=== PATIENT | female | born 1935 | race Caucasian/White ===

== ENCOUNTER → 2023-09-16 11:50 | Outpatient (REF) | payer MEDICARE, OTHER, SELFPAY ==
[2023-09-16 13:51] LABS: TSH 3.32 uIU/ml (0.47-4.68)
== END ==
LOC: REG 11:50
PROVIDERS: ATTENDING PHYSICIAN Internal Medicine Endocrinology, Diabetes & Metabolism; FAMILY PHYSICIAN Family Medicine
DX: E03.9 Hypothyroidism, unspecified (principal)
CPT/HCPCS: 36415; 84443

== ENCOUNTER → 2023-09-22 11:25 | Outpatient (REF) | payer MEDICARE, OTHER, SELFPAY ==
[2023-09-22 12:55] LABS: % Basophils 1.1 % (0-2); % Eosinophils 3.4 % (0-6); % Immature Granulocytes 0.4 % (0-0.5); % Lymphocytes 24.4 % (20.5-51.1); % Monocytes 7.6 % (1.7-9.3); % Neutrophils 63.1 % (42.2-75.2); Absolute Basophils 0.1 10^3/uL (0-0.2); Absolute Eosinophils 0.2 10^3/uL (0-0.7); Absolute Lymphocytes 1.4 10^3/uL (1.2-3.4); Absolute Monocytes 0.4 10^3/uL (0.1-0.6); Absolute Neutrophils 3.6 10^3/uL (1.4-6.5); Hematocrit 39.4 % (37.0-47.0); Hemoglobin 13.2 g/dL (12.0-16.0); Mean Corp Hgb Conc. 33.5 g/dL (33.0-37.0); Mean Corpuscular Volume 101.5 fL (81.0-99.0); Mean Platelet Volume 10.5 fL (7.4-10.4); Nucleated Red Blood Cells % 0 %; Platelet Count 186 10^3/uL (130-400); Red Blood Cell Count 3.88 10^6/uL (4.20-5.40); Red Cell Dist. Width 12.2 % (11.5-14.5); White Blood Cell Count 5.7 10^3/uL (4.8-10.8)
[2023-09-22 13:27] LABS: ALT (SGPT) 14 U/L (0-35); AST (SGOT) 26 U/L (14-36); Albumin 4.3 g/dl (3.5-5.0); Alkaline Phosphatase 67 U/L (38-126); Blood Urea Nitrogen 21 mg/dl (7-17); Calcium 9.7 mg/dl (8.4-10.2); Carbon Dioxide 30 mmol/L (22-30); Chloride 103 mmol/L (98-107); Glucose 89 mg/dl (70-99); Potassium 4.7 mmol/L (3.5-5.1); Sodium 137 mmol/L (135-145); Total Bilirubin 1.4 mg/dl (0.2-1.3); Total Protein 6.9 g/dl (6.3-8.2); eGFR 48.63
[2023-09-22 14:56] LABS: TSH Reflex To Free T4 8.25 uIU/ml (0.47-4.68)
[2023-09-22 15:26] LABS: Free T4 0.79 ng/dl (0.78-2.19)
== END ==
LOC: REG 11:25
PROVIDERS: ATTENDING PHYSICIAN Family Medicine
DX: C83.03 Small cell B-cell lymphoma, intra-abdominal lymph nodes (principal); D47.2 Monoclonal gammopathy; D75.89 Other specified diseases of blood and blood-forming organs; I10 Essential (primary) hypertension; E03.9 Hypothyroidism, unspecified
CPT/HCPCS: 36415; 80053; 84439; 84443; 85025

== ENCOUNTER → 2023-11-04 11:39 | Outpatient (REF) | payer MEDICARE, OTHER, SELFPAY ==
[2023-11-04 15:38] LABS: TSH 3.38 uIU/ml (0.47-4.68)
== END ==
LOC: REG 11:39
PROVIDERS: ATTENDING PHYSICIAN Internal Medicine Endocrinology, Diabetes & Metabolism; FAMILY PHYSICIAN Family Medicine
DX: E03.9 Hypothyroidism, unspecified (principal)
CPT/HCPCS: 36415; 84443

== ENCOUNTER 2023-11-14 20:31 | Inpatient (IN) | payer MEDICARE, OTHER, SELFPAY ==
[2023-11-14] VITALS (10 sets, daily range): BP systolic 101–144; BP diastolic 55–108; PULSE 84–90
--- NOTE | 2023-11-14 16:36 | ED.GENMED ---
History of Present Illness
General
Chief Complaint: Fall
Source: patient and family
Exam Limitations: dementia
Time Seen by Provider: 11/14/23 16:21
Travel History
Have you had any contact with someone who has COVID-19?: No
Do you have any symptoms of coronavirus? Fever > 100 degrees, chills, cough, shortness of breath, sore throat, loss of taste or smell, muscle aches, or headache?: No
History of Present Illness
History of Present Illness:
88-year-old female has mild dementia. However has lived independently. Checked on frequently by family. Her brother called her last evening she was in her normal state of health. Her daughter called today around noon she did not answer which is
unusual. The daughter then called the police who checked on her and apparently was on the floor by her bed. Unknown downtime. Patient has no specific complaints and does not recall what happened. She has no complaints denying chest pain
shortness of breath headache neck pain or other complaints.
Past History
Past History
ED Past Medical History: CAD (nstemi), COPD, Hypercholesterolemia and Other (Dementia)
ED Past Surgical History: Other (Tonsil/cataracts)
Social History
Tobacco: Former smoker
Alcohol: None
Drug: None
Living: with family
Review of Systems
Review of Systems
All Other Systems: Not applicable
Constitutional: Denies fever
Respiratory: Reports no symptoms
Cardiac: Reports no symptoms
Phy Exam
Physical Exam
Physical Exam:
TRAUMA EXAM:
VITAL SIGNS: Vital signs reviewed, cooperative
DISTRESS: No active disease
EYES: Pupils reactive, no orbital trauma
NOSE: No deformity or epistaxis
FACE AND SCALP: No scalp trauma, external canals no blood. Contusion left zygoma
NECK: Supple nontender
BACK: Back nontender, pelvis stable to compression
RESPIRATORY: No distress, breath sounds normal, ecchymosis and tenderness to the right anterior chest wall
CARDIAC: No murmur, pulses equal and strong
ABDOMEN: Soft nontender bowel sounds normal
SKIN: Skin intact no bleeding, color normal
EXTREMITIES: Nontender
NEUROLOGICAL: Alert, oriented x 2, no motor deficits
PSYCH: Mood affect normal
Course
Orders/Labs/Results
Orders:
Orders
11/14/23 16:29
CT Cervical Spine W/o Iv Contr Urgent
Comment:
Reason For Exam: fall. facial injury
CT Head W/o Iv Contrast Urgent
Comment:
Reason For Exam: fall. facial injury
Cardiac Monitoring- Treatment ONCE
11/14/23 16:30
CR Chest - 2 Views Urgent
Comment:
Reason For Exam: cw trauma. right anterior
11/14/23 16:31
EKG [Electrocardiogram (*1)] Urgent
Reason for Study: Syncope
EKG- Treatment ONCE
11/14/23 16:37
Basic Metabolic Panel Urgent
CPK [Creatine Phosphokinase] Urgent
Complete Blood Count/With Diff Urgent
Urinalysis Reflex To Culture Urgent
Date Specimen was Collected: 11/14/23
Time Specimen was Collected: 16:36
Urine Microscopic Reflex Cult Urgent
Urine Culture Urgent
AMALIA Source: U
Specimen Description:
Date Specimen was Collected: 11/14/23
Time Specimen was Collected: 16:36
11/14/23 17:44
CefTRIAXone [Rocephin] 1,000 mg IV NOW STA
11/14/23 19:41
Admit/Transfer Patient As Directed
Co-Sign Provider:
Level of Care: Inpatient admission
Assign to:: Telemetry
Physician / Group: Johann
Diagnosis: Found Down, Rhabdo
Reason for Telemetry: Syncope
Date to Stop Telemetry: 11/16/23
Time to Stop Telemetry: 11:00
Reason for Hospitalization: Found Down, Rhabdo
Expected length of stay greater than two midnights?: Yes
ELOS- Estimated Length of Stay in days: 2
I certify the patient meets the requirements for IP care: Yes
11/14/23 19:44
Code Status As Directed
Resuscitation Status: Do not resuscitate
Reached after discussion with pt or family/Healthcare POA: Yes
DNR Bracelet Application ONCE
11/16/23 11:00
DC Protocol for Telemetry ONCE
Abnormal Lab Results
11/14/23
16:37
WBC 11.0 H 10^3/uL
(4.8-10.8)
MCV 99.3 H fL
(81.0-99.0)
MCH 34.3 H pg
(27.0-31.0)
Abs Immat Gran (auto) 0.1 H 10^3/uL
(0-0.05)
Absolute Neuts (auto) 9.2 H 10^3/uL
(1.4-6.5)
Absolute Lymphs (auto) 1.0 L 10^3/uL
(1.2-3.4)
Absolute Monos (auto) 0.8 H 10^3/uL
(0.1-0.6)
Neutrophils % 83.3 H %
(42.2-75.2)
Lymphocytes % 8.6 L %
(20.5-51.1)
BUN 18 H mg/dl
(7-17)
Glucose 110 H mg/dl
(70-99)
Creatine Kinase 974 H U/L
(30-135)
Urine Ketones Trace A
(Negative)
Ur Occult Blood Reflex Trace A
(Negative)
Leukocyte Esterase Rfl 1+ A
(Negative)
Urine RBC 3-6 A /HPF
(0-2)
Urine WBC (Reflex) 16-20 A /HPF
(0-5)
Urine Bacteria (Reflex) Moderate A
(Negative)
11/14/23 16:37
11/14/23 16:37
Vital Signs
Initial and Last Documented VS:
Initial Vital Signs
Temp Pulse Resp BP Pulse Ox
98.4 F 75 16 120/108 97
11/14/23 16:23 11/14/23 16:23 11/14/23 16:23 11/14/23 16:23 11/14/23 16:23
Last Documented Vital Signs
Temp Pulse Resp BP Pulse Ox
98.4 F 80 16 106/58 96
11/14/23 16:23 11/14/23 18:00 11/14/23 18:00 11/14/23 18:00 11/14/23 18:00
MDM/Problems Addressed
Differential Diagnosis Includes:
Patient found on the ground by her bed. Unwitnessed. Unknown history. Fall versus syncope. Some minor apparent trauma that is being evaluated. Medically stable. ADL issues. Discussed with daughter.
*Radiology
Radiology exam reviewed: radiology read reviewed (No acute finding)
*Pulse Oximetry
Patient hypoxic: no
*EKG
Interpreted by ED Provider?: Yes
Interpretation: normal
Rate: normal
Rhythm: sinus
[place]: left axis deviation
Interval: normal interval
QRS Pattern: normal QRS
Ischemia: non-specific ST changes
*Desktop Support Associate Interpretation
Rate: normal
Interpretation: normal
Heart Rate: 74
Rhythm: sinus
*Critical Care Note
Total Time (30-74mins, 75-104mins- exclusive of procedures): Not Applicable
Data Reviewed
Review of Other/Old Records Reveals: Labs and Testing
Patient Management
Social determinants of health affecting care: Living situation
Update Note
Update Note:
Of note, patient's current close are her overnight close which would imply she was on the floor for a while
ED Attending Note
-
Portions of this chart may have been created with voice recognition software.� Occasional wrong word or��sound alike� substitutions may have occurred due to the inherent limitations of voice recognition software.
Discharge Plan
Departure
Patient Disposition: Admit
Date of Disposition: 11/14/23
Time of Disposition: 19:57
Presentation/result/management discussed w/ accepting MD/DO: Hospitalist
Discharge Problem:
UTI, Fall versus syncope, Multiple contusions
Prescriptions:
No Action
thyroid (pork) [[place] Thyroid] 60 MG tablet
60 mg PO DAILY
nitroglycerin 0.4 MG tablet, sublingual
0.4 mg sublingual [id number] PRN (Reason: chest pain) Qty: 25 3RF
verapamil 120 mg tablet extended release
120 mg PO BID
B Complex Tablet Extended Release
1 tab PO DAILY
donepezil 10 mg tablet
10 mg PO DAILY@1600
lisinopril 20 mg tablet
20 mg PO DAILY
alendronate 70 mg tablet
70 mg PO MO
isosorbide mononitrate 120 mg tablet extended release 24 hr
120 mg PO DAILY
folic acid 800 mcg Tablet
0.8 mg PO DAILY
memantine 10 mg tablet
10 mg PO BID
coenzyme Q10 [Co Q-10] 200 mg Capsule
200 mg PO DAILY
cholecalciferol (vitamin D3) 250 mcg (10,000 unit) Tablet
250 mcg PO DAILY
cyanocobalamin (vitamin B-12) 2,500 mcg Tablet
2,500 mcg PO DAILY
biotin 1,000 mcg Tablet,Chewable
1,000 mcg PO DAILY
aspirin 81 MG tablet,delayed release (DR/EC)
81 mg PO HS
Referrals:
Carie Ruiz MD [Family Provider] -
Interventions
Interventions:
*Risk Screen - Suicide Last Done: 11/14/23 16:27
*General Assessment Last Done: 11/14/23 16:27
*Neglect/Abuse Screening Last Done: 11/14/23 16:27
*ED COVID-19 Vaccine History Last Done: 11/14/23 16:27
ED-Musculoskeletal Assessment Last Done: 11/14/23 16:27
ED- Neurological Assessment Last Done: 11/14/23 16:27
ED-Skin Assessment Last Done: 11/14/23 16:27
Discharge Date and Time
Print Language: SPANISH
[2023-11-14 16:43] LABS: % Basophils 0.4 % (0-2); % Eosinophils 0.3 % (0-6); % Immature Granulocytes 0.5 % (0-0.5); % Lymphocytes 8.6 % (20.5-51.1); % Monocytes 6.9 % (1.7-9.3); % Neutrophils 83.3 % (42.2-75.2); Absolute Immature Granulocytes 0.1 10^3/uL (0-0.05); Absolute Monocytes 0.8 10^3/uL (0.1-0.6); Absolute Neutrophils 9.2 10^3/uL (1.4-6.5); Hematocrit 43.1 % (37.0-47.0); Hemoglobin 14.9 g/dL (12.0-16.0); Mean Corp Hgb Conc. 34.6 g/dL (33.0-37.0); Mean Corpuscular Hgb 34.3 pg (27.0-31.0); Mean Corpuscular Volume 99.3 fL (81.0-99.0); Mean Platelet Volume 10.4 fL (7.4-10.4); Nucleated Red Blood Cells % 0 %; Platelet Count 197 10^3/uL (130-400); Red Blood Cell Count 4.34 10^6/uL (4.20-5.40); Red Cell Dist. Width 11.9 % (11.5-14.5)
[2023-11-14 16:51] LABS: Urine Albumin Negative (Neg - Trace); Urine Bilirubin Negative (Negative); Urine Character Clear (Clear); Urine Color Yellow; Urine Glucose Negative (Negative); Urine Ketone Trace (Negative); Urine Leukocyte 1+ (Negative); Urine Nitrite Negative (Negative); Urine Occult Blood Trace (Negative); Urine Specific Gravity 1.015 (<1.030); Urine Urobilinogen Negative (Neg - 1+)
[2023-11-14 16:55] LABS: Blood Urea Nitrogen 18 mg/dl (7-17); Calcium 10.1 mg/dl (8.4-10.2); Carbon Dioxide 29 mmol/L (22-30); Chloride 104 mmol/L (98-107); Creatine Phosphokinase 974 U/L (30-135); Glucose 110 mg/dl (70-99); Potassium 4.4 mmol/L (3.5-5.1); Sodium 140 mmol/L (135-145); eGFR > 60.00
[2023-11-14 16:57] LABS: Urine Bacteria Moderate (Negative); Urine White Cell 16-20 /HPF (0-5)
[2023-11-14] MEDS: ROCEPHIN 1000 MG IV (18:04)
--- NOTE | 2023-11-14 19:46 | HPS.HSE ---
Family Physician
-
Family Physician: Carie Ruiz MD
Chief Complaint
-
Found Down
History of Present Illness
Patient is an 88y F with PMH significant for ASCVD, hypothyroidism and dementia who presents to ED after being found down at home. Patient is unable to contribute much to this history given her baseline dementia. She lives alone with local
family who check on her often. Patient spoke with her brother via phone last PM around 7:30. She seemed well at that time. This was the last that she was seen or heard from well. Daughter called her today at noon and she did not answer. After
several more attempts, daughter called police to do welfare check. They found the patient lying on the floor of her bedroom around 3 PM this afternoon. She was wearing her pajamas. She was awake when found. Patient was brought to the ED for
further evaluation / treatment.
Patient is unable to recall or relay any events that may have led to her being on the floor.
In the ED, patient states that she feels fairly well. She complains of neck discomfort - which her daughter notes is a chronic issue.
Medical History
Past Medical History
Past Medical History: Reports Other
Additional Past Medical History:
ASCVD (NSTEMI suspected due to coronary spasm - normal cath)
SVT
Hypertension
Alzheimer's Dementia
Osteoporosis
DDD
Past Surgical History: Reports Other
Additional Past Surgical History:
T&A
Cataracts
Social History
Tobacco: Former Smoker (Quit smoking in 1970s. Approx 20 pack years total use.)
Alcohol: None
Drug: None
Living: Alone
Family History
Family History: Not pertinent
Allergies / Home Medications
Allergies reflects when Allergies were last updated in [facility].
Home Medications with original date entered in [facility]
Allergy/Medication List:
Allergies
Allergy/AdvReac Type Severity Reaction Status Date / Time
clams Allergy Nausea / Verified 06/18/15 16:16
Vomiting
codeine Allergy Unknown Verified 06/18/15 16:16
Home Medications
thyroid (pork) 60 mg tablet ([place] Thyroid) 60 mg PO DAILY 06/18/15
nitroglycerin 0.4 mg sublingual tablet 0.4 mg sublingual [id number] PRN chest pain #25 tabs 06/20/15
alendronate 70 mg tablet 70 mg PO MO 11/14/23
aspirin 81 mg tablet,delayed release 81 mg PO HS 11/14/23
biotin 1,000 mcg chewable tablet 1,000 mcg PO DAILY 11/14/23
cholecalciferol (vitamin D3) 250 mcg (10,000 unit) tablet 250 mcg PO DAILY 11/14/23
coenzyme Q10 200 mg capsule (Co Q-10) 200 mg PO DAILY 11/14/23
cyanocobalamin (vitamin B-12) 2,500 mcg tablet 2,500 mcg PO DAILY 11/14/23
donepezil 10 mg tablet 10 mg PO DAILY@1600 11/14/23
folic acid 800 mcg tablet 0.8 mg PO DAILY 11/14/23
isosorbide mononitrate 120 mg tablet,extended release 24 hr 120 mg PO DAILY 11/14/23
lisinopril 20 mg tablet 20 mg PO DAILY 11/14/23
memantine 10 mg tablet 10 mg PO BID 11/14/23
verapamil 120 mg tablet,extended release 120 mg PO BID 11/14/23
vitamin B complex 1 tab PO DAILY 11/14/23
Review of Systems
-
History Source: Patient and Family
A 12 point ROS was completed and negative except as noted: Yes
Constitutional: Denies Fever, Fatigue or Chills
EENT: Denies Sore Throat
Respiratory: Denies Cough or Trouble Breathing
Cardiac: Denies Chest Pain or Palpitations
Abdomen/GI: Denies Abdominal Pain, Nausea, Vomiting, Diarrhea or Constipated
: Denies Dysuria, Frequency, Flank Pain, Incontinence or Bleeding
Musculoskeletal: Reports Other (Neck pain)
Neurological: Denies Dizzy, Headache, Weakness or Numbness
Psych: Reports Dementia; Denies Depression or Anxiety
Physical Exam
Vital Signs
Vital Signs
Temp Pulse Resp BP Pulse Ox
98.4 F 80 16 106/58 96
11/14/23 16:23 11/14/23 18:00 11/14/23 18:00 11/14/23 18:00 11/14/23 18:00
Physical Exam
General: Other (Pleasant 88y F in no acute distress.)
HEENT: Moist mucous membranes, PERRLA and Other (Bruising adjacent to the L eye.)
Respiratory: Clear; No Wheezes, Rales or Rhonchi
Cardiac: S1/S2, Regular Rhythm and Murmur (II/ AREN)
GI: Soft, Non Tender, Non Distended and Normal Bowel Sounds
Musculoskeletal: No Clubbing, No Cyanosis and No Edema
Skin: Other (Small abrasion over the R elbow.)
Neuro: Awake, Alert and Nonfocal/grossly intact; No Oriented
Laboratory Results
-
11/14/23 16:37
11/14/23 16:37
Impression/Plan
-
A/P: Patient is an 88y F with PMH significant for ASCVD, hypertension and dementia who presents to ED for evaluation after being found down.
Found Down
Rhabdomyolysis
- Admit for further evaluation and treatment.
- Unclear mechanism that led patient to floor - would assume fall overnight at some point.
- CT head shows advanced atrophy but otherwise unremarkable.
- CT C-Spine shows chronic DDD but no acute fracture / other findings.
- CPK = 974 c/w muscle breakdown from prolonged time down.
- UA without significant myoglobinuria to suggest pigment nephropathy. Renal function normal.
- IVFs overnight and follow renal function, CPK, etc.
- PT / OT evaluations for gait assessment.
- Monitor on tele overnight to rule out arrhythmia / syncope as etiology of fall.
- Follow neuro status and consider repeat PRESCHOOL ASSOCIATE TEACHER imaging if any new changes.
Questionable UTI
- UA with mild increase in WBC, negative nitrites.
- Patient does not report any urinary symptoms.
- Continue ceftriaxone for now and follow-up culture data.
ASCVD
- History of NSTEMI presumed secondary to vasospasm given normal cath.
- Continue daily ASA.
- Monitor for any chest pain, palpitations, etc.
Benign Hypertension
- BP on the lower side at present.
- Hold multidrug antihypertensive regimen for now.
- Resume meds incrementally as needed for BP control.
Hypothyroidism
- Stable. Most recent TFTs (11/03) were normal.
- Continue current hormone replacement.
Alzheimer's Dementia
- CT shows advanced atrophy and patient unable to contribute to history due to baseline dementia.
- No prior issues with gait stability / falls / etc.
- Continue Aricept / Namenda.
- Follow PT recommendations.
- Return to home alone may not be best option.
DVT Prophylaxis: SCDs
Code Status: DNR
[2023-11-14 23:14] LABS: Troponin I 0.017 ng/ml
[2023-11-14] MEDS: ASPIR LOW (ENTERIC COATED) 81 MG PO (23:32)
[2023-11-14] MEDS: NSS 1000 IV (23:32)
[2023-11-14] MEDS: NAMENDA 10 MG PO (23:59)
[2023-11-15] VITALS (12 sets, daily range): BP systolic 103–145; BP diastolic 43–93; PULSE 73–79
[2023-11-15 05:55] LABS: Hematocrit 40.3 % (37.0-47.0); Hemoglobin 13.6 g/dL (12.0-16.0); Mean Corp Hgb Conc. 33.7 g/dL (33.0-37.0); Mean Corpuscular Hgb 34.1 pg (27.0-31.0); Mean Platelet Volume 10.4 fL (7.4-10.4); Platelet Count 164 10^3/uL (130-400); Red Blood Cell Count 3.99 10^6/uL (4.20-5.40); White Blood Cell Count 8.6 10^3/uL (4.8-10.8)
[2023-11-15 06:20] LABS: Troponin I < 0.012 ng/ml
[2023-11-15 06:23] LABS: Blood Urea Nitrogen 22 mg/dl (7-17); Calcium 9.1 mg/dl (8.4-10.2); Carbon Dioxide 26 mmol/L (22-30); Chloride 106 mmol/L (98-107); Creatine Phosphokinase 427 U/L (30-135); Glucose 84 mg/dl (70-99); Magnesium 2.1 mg/dl (1.6-2.3); Potassium 3.8 mmol/L (3.5-5.1); Sodium 140 mmol/L (135-145); eGFR > 60.00
[2023-11-15] MEDS: FOLVITE 0.800000000000000044 MG PO (08:20)
[2023-11-15] MEDS: NAMENDA 10 MG PO ×2 (08:20→20:22)
[2023-11-15] MEDS: ARMOUR THYROID 60 MG PO (08:20)
[2023-11-15] MEDS: NSS 1000 IV ×2 (08:21→20:25)
[2023-11-15] MEDS: TYLENOL 650 MG PO ×2 (09:27→15:01)
[2023-11-15 11:50] LABS: Troponin I < 0.012 ng/ml
--- NOTE | 2023-11-15 12:44 | W.PN.HOSP.TC ---
Today's Communication/Plan
-
IVF
Restart Verapamil
Orthostatic vitals
Hold Lisinopril
Discharge planning
Assessment / Plan
Assessment / Plan
88-year-old female was found down at home and brought into the ER for evaluation she spoke to her brother 7:30 PM at night and she was found at 3 PM the next day wearing pajamas. Daughter thinks that she may have tripped on furniture the way the
room looks.
Pleasently demented.
Cannot give history
Daughter at bed side
Moving all extremities without any pain
Cardiovascular system S1-S2 appreciated
Chest clear to auscultation
Abdomen soft and nontender
Nonfocal neuroexam
# Fall with rhabdomyolysis
Unclear reason for fall
CT head with advanced atrial free
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
Continue IV fluids to treat rhabdomyolysis and follow CPK level
Monitor on telemetry and follow neurostatus
# Questionable UTI
Continue ceftriaxone until cultures are back
# Coronary artery disease-history of [id number] to vasospasm with normal cath
Continue aspirin, Imdur
Troponins are negative
# Mild to moderate mitral regurgitation
# Hypertension-
Normally on lisinopril 20 p.o. daily, verapamil 120 mg twice daily
Hold Lisinopril
Continue Verapamil with H/O SVT
# Hypothyroidism-continue [place] Thyroid 60 mg p.o. daily
History of autoimmune thyroiditis
# Dementia-continue memantine 10 twice daily, donepezil 10 mg p.o. daily
PT OT
# History of SVT-continue verapamil
# Gilbert syndrome
# Diverticulosis
# Osteopenia/osteoporosis-on Fosamax
# Ex-smoker
# DVT prophylaxis-SCDs
# CODE STATUS-DNR conformed with daughter at bed side
Daughter says they are not ready for assisted living.
She is planning to get an aide and daughter also a med alert for mom
Possible discharge tomorrow discussed
Case management consulted
Anticipated Discharge: Within 24 hours
Subjective/Interval History
-
Date of Service: November 15, 2023
Objective Data
-
Labs:
Laboratory Results
11/15/23
05:37
WBC 8.6
Hgb 13.6
Hct 40.3
Plt Count 164
Sodium 140
Potassium 3.8
Chloride 106
Carbon Dioxide 26
BUN 22 H
Creatinine 0.9
Glucose 84
Calcium 9.1
Vital Signs:
Vital Signs
Temp Pulse Resp BP Pulse Ox
98.0 F 65 18 103/43 98
11/15/23 11:47 11/15/23 11:47 11/15/23 11:47 11/15/23 11:47 11/15/23 11:47
[2023-11-15] MEDS: STERILE WATER FOR INJECTION 10 ML IV (17:21)
[2023-11-15] MEDS: ROCEPHIN 1000 MG IV (17:21)
[2023-11-15] MEDS: ARICEPT 10 MG PO (17:21)
[2023-11-15] MEDS: CALAN EXTENDED RELEASE 120 MG PO (20:22)
[2023-11-15] MEDS: ASPIR LOW (ENTERIC COATED) 81 MG PO (21:26)
[2023-11-16] VITALS (17 sets, daily range): BP systolic 112–141; BP diastolic 48–96; PULSE 76
[2023-11-16] MEDS: ARMOUR THYROID 60 MG PO (05:36)
[2023-11-16 06:31] LABS: Creatine Phosphokinase 237 U/L (30-135)
[2023-11-16] MEDS: IMDUR (EXTENDED RELEASE) 30 MG PO (08:01)
[2023-11-16] MEDS: CALAN EXTENDED RELEASE 120 MG PO ×2 (08:01→22:40)
[2023-11-16] MEDS: VITAMIN D3 (cholecalciferol) 250 MCG PO (08:02)
[2023-11-16] MEDS: FOLVITE 0.800000000000000044 MG PO (08:02)
[2023-11-16] MEDS: NAMENDA 10 MG PO ×2 (08:02→22:40)
[2023-11-16] MEDS: VITAMIN B-12 2500 MCG PO (08:03)
--- NOTE | 2023-11-16 08:29 | W.PN.HOSP.TC ---
Today's Communication/Plan
-
Stop IVF
OOB to chair
PT OT re eval
Discharge planning
Assessment / Plan
Assessment / Plan
88-year-old female was found down at home and brought into the ER for evaluation she spoke to her brother 7:30 PM at night and she was found at 3 PM the next day wearing pajamas. Daughter thinks that she may have tripped on furniture the way the
room looks.
Pleasantly demented.
Cardiovascular system S1-S2 appreciated, SM apex
Chest clear to auscultation
Abdomen soft and nontender
Nonfocal neuroexam
# Fall with rhabdomyolysis
Unclear reason for fall
CT head with advanced atrial free
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
CPKs much better. Stop IV fluids
# Questionable UTI
Continue ceftriaxone until cultures are back
# Coronary artery disease-history of [id number] to vasospasm with normal cath
Continue aspirin, Imdur
Troponins are negative
# Mild to moderate mitral regurgitation
# Hypertension-
Normally on lisinopril 20 p.o. daily, verapamil 120 mg twice daily
Hold Lisinopril
Continue Verapamil
# Hypothyroidism-continue [place] Thyroid 60 mg p.o. daily
History of autoimmune thyroiditis
# Dementia-continue memantine 10 twice daily, donepezil 10 mg p.o. daily
PT OT
# History of SVT-continue verapamil
# Gilbert syndrome
# Diverticulosis
# Osteopenia/osteoporosis-on Fosamax
# Ex-smoker
# DVT prophylaxis-SCDs
# CODE STATUS-DNR conformed with daughter at bed side
Daughter says they are not ready for assisted living.
She is planning to get an aide and daughter also a med alert for mom
Possible discharge today was discussed
Case management consulted
D/W RN
Pt ambulates to bathroom.
PT and OT to re evaluate pt.
Message sent to Case management
Anticipated Discharge: Today
Subjective/Interval History
-
Date of Service: November 16, 2023
Objective Data
-
Vital Signs:
Vital Signs
Temp Pulse Resp BP Pulse Ox
97.7 F 68 14 148/64 96
11/16/23 07:00 11/16/23 08:01 11/16/23 07:00 11/16/23 08:01 11/16/23 07:00
[2023-11-16] MEDS: NSS IV (08:33)
--- NOTE | 2023-11-16 09:48 | CM ---
Addendum entered by Scott New 11/16/23 13:02:
CM met with pt and pt's daughter. PT evaluations reviewed. Pt's daughter stated that pt is very weak to go home and she does not have any caregiver services in place. Pt's daughter is requested SNF level of care. A list of SNFs provided to pt and
her daughter. Following SNFs preferred: [facility], [facility], [facility], [facility].
A referral to above SNFs made. Awaiting for determination.
D/C plan: preferred SNF.
CM will follow to assist pt with discharge to a preferred SNF.
Original Note:
CM following re: discharge planning.
CM consulted to assist pt with discharge planning at ED.
Pt is an 88 year old female, admitted with primary dx of Fall with rhabdomyolysis.
Pt presents lying in a stretcher smiling, with decreased judgment, limited insight, short term memory deficit and very worship preoccupied. Pt reports she lives alone in a 2SH, 1 step to enter, has 3 children, daughter Coretta lives in [place] and
helps as needed over the phone. Pt described herself as independent in all areas [employer]. Pt stated she is very weak now.
CM spoke to pt's daughter Coretta and she stated she tries to get 24/7 caregiver services for her mother but she has been refusing and not happy to have anybody at her house. pt's daughter feels that her mother will be benefitted from a short term
rehab and daughter will come to today at 11:00 a.m to discuss a detailed discharge plan.
PT evaluations noted from yesterday and today: SNF level of care recommended and 24/7 caregiver services at home. CM will discuss it with daughter at 11:00 a.m.
PCP: collin Ruiz
D/C plan: most likely SNF level of care and it will be discussed with pt's daughter today
CM will follow with discharge plan updates as hospitalization progresses
--- NOTE | 2023-11-16 10:08 | PTCARENOTE ---
Assumed care of pt at 0645. AAOx2. Disoriented to time and situation. Pt with hx of dementia. Bed alarm in place. NSR on compliance monitor. VSS. Assessment documented. Case management at bedside with pt. See note. PT/OT also at bedside with pt this
morning. Recommending SNF or home with 24 hr assistance. Pt in bed, call infante in reach.
[2023-11-16] MEDS: ARICEPT 10 MG PO (16:18)
[2023-11-16] MEDS: STERILE WATER FOR INJECTION 10 ML IV (17:08)
[2023-11-16] MEDS: ROCEPHIN 1000 MG IV (17:08)
[2023-11-16] MEDS: ASPIR LOW (ENTERIC COATED) 81 MG PO (22:40)
[2023-11-17 04:04] VITALS: BP 122/65
[2023-11-17 07:48] VITALS: BP 140/61
[2023-11-17] MEDS: CALAN EXTENDED RELEASE 120 MG PO (07:50)
[2023-11-17] MEDS: ARMOUR THYROID 60 MG PO (07:50)
[2023-11-17] MEDS: FOLVITE 0.800000000000000044 MG PO (07:50)
[2023-11-17] MEDS: IMDUR (EXTENDED RELEASE) 30 MG PO ×2 (07:50→13:33)
[2023-11-17] MEDS: NAMENDA 10 MG PO (07:51)
[2023-11-17] MEDS: VITAMIN B-12 2500 MCG PO (07:51)
[2023-11-17] MEDS: VITAMIN D3 (cholecalciferol) 250 MCG PO (07:51)
--- NOTE | 2023-11-17 10:32 | PTCARENOTE ---
Assumed care of pt at 0645. AAOx2. Disoriented to time and situation. Hx of dementia. Bed alarm remains in place. Pt using call infante appropriately. NSR on china and silverware salesperson. VSS. Assessment documented. CM assisting with dispo.
--- NOTE | 2023-11-17 10:57 | W.PN.HOSP.TC ---
Today's Communication/Plan
-
Discharge
Assessment / Plan
Assessment / Plan
88-year-old female was found down at home and brought into the ER for evaluation she spoke to her brother 7:30 PM at night and she was found at 3 PM the next day wearing pajamas. Daughter thinks that she may have tripped on furniture the way the
room looks.
Pleasantly demented.
Cardiovascular system S1-S2 appreciated, SM apex
Chest clear to auscultation
Abdomen soft and nontender
Nonfocal neuroexam
# Fall with rhabdomyolysis
Unclear reason for fall
CT head with advanced atrial free
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
CPKs much better. Stopped IV fluids
# UTI ruled out
Stop AB
# Coronary artery disease-history of [id number] to vasospasm with normal cath
Continue aspirin, Imdur
Troponins are negative
# Mild to moderate mitral regurgitation
# Hypertension-
Normally on lisinopril 20 p.o. daily, verapamil 120 mg twice daily
Hold Lisinopril
Continue Verapamil
# Hypothyroidism-continue [place] Thyroid 60 mg p.o. daily
History of autoimmune thyroiditis
# Dementia-continue memantine 10 twice daily, donepezil 10 mg p.o. daily
PT OT
# History of SVT-continue verapamil
# Gilbert syndrome
# Diverticulosis
# Osteopenia/osteoporosis-on Fosamax
# Ex-smoker
# DVT prophylaxis-SCDs
# CODE STATUS-DNR conformed with daughter at bed side
D/W Case management
D/W RN
Spoke to daughter and updated.
Discharge to rehab
time spent 31 min
Anticipated Discharge: Today
Subjective/Interval History
-
Date of Service: November 17, 2023
Objective Data
-
Vital Signs:
Vital Signs
Temp Pulse Resp BP Pulse Ox
97.9 F 62 18 140/61 94
11/17/23 07:48 11/17/23 07:50 11/17/23 07:48 11/17/23 07:50 11/17/23 07:48
--- NOTE | 2023-11-17 11:01 | W.DS.TRANS ---
Addendum entered and electronically signed by Compa Cruz MD 11/17/23 15:30:
Dictation- [id number]
Original Note:
DC Summary - [employer]
-
Discharge Instructions:
Discharge Diagnosis/Procedures Fall, rhabdomyolysis, mitral regurgitation,
hypertension, hypothyroidism, dementia, history
of SVT, osteoporosis
Diet As tolerated
Activity As tolerated,With assistance
Driving Restrictions No driving
Blood Work CBC ,BMP 1 week
Other Services PT,OT
Instructions:
Stand-Alone Forms:
Changes to Home Medications: Yes
Discharge Medications:
DC Medications w/original date entered in [employer]
nitroglycerin 0.4 mg sublingual tablet 0.4 mg sublingual [id number] PRN chest pain #25 tabs 06/20/15
lisinopril 20 mg tablet 20 mg PO DAILY 11/14/23
alendronate 70 mg tablet 70 mg PO MO osteoporosis #0 tabs 11/16/23
aspirin 81 mg tablet,delayed release 81 mg PO HS Blood clot prevention/tx #0 tabs 11/16/23
biotin 1,000 mcg chewable tablet 1,000 mcg PO DAILY Supplement #0 tabs 11/16/23
cholecalciferol (vitamin D3) 250 mcg (10,000 unit) tablet 250 mcg PO DAILY Supplement #0 tabs 11/16/23
coenzyme Q10 200 mg capsule (Co Q-10) 200 mg PO DAILY Supplement #0 caps 11/16/23
cyanocobalamin (vitamin B-12) 2,500 mcg tablet 2,500 mcg PO DAILY Supplement #0 tabs 11/16/23
donepezil 10 mg tablet 10 mg PO DAILY@1600 dementia #0 tabs 11/16/23
folic acid 800 mcg tablet 0.8 mg PO DAILY Supplement #0 tabs 11/16/23
isosorbide mononitrate 60 mg tablet,extended release 24 hr 60 mg PO DAILY Heart disease/condition #30 tabs 11/16/23
memantine 10 mg tablet 10 mg PO BID dementia #0 tabs 11/16/23
thyroid (pork) 60 mg tablet ([place] Thyroid) 60 mg PO DAILY Thyroid #0 tabs 11/16/23
verapamil 120 mg tablet,extended release 120 mg PO BID svt #0 tabs 11/16/23
vitamin B complex 1 tab PO DAILY Supplement #0 tabs 11/16/23
Home Medication Changes
Imdur dose reduced
Lisinopril is on hold until blood pressure needs it
Pending Results: No
[2023-11-17 11:31] VITALS: BP 126/59
--- NOTE | 2023-11-17 12:34 | CM ---
CM following re: discharge planning.
Reviewed pt's chart, met with pt, discussed with MD and RN, met with pt's daughter Coretta.
According to MD pt is medically stable to be discharged today. Both pt and her daughter are aware, expressed their agreement with discharge. IMM reviewed, placed on chart, pt has a copy.
Both pt and her daughter are aware that [facility], [facility] and [facility] have no bed available. [facility] offered a bed and both pt and her daughter expressed their agreement with going to [facility]. Pt's daughter stated she will transport pt to [facility].
CM spoke to [facility] liaison and she confirmed that a bed at [facility] is available and pt is accepted for admission today.
[facility] nursing report: [phone]
Please fax discharge instructions to [phone]
D/C plan: [facility] for a short term rehab. Daughter to transport.
[2023-11-17 14:31] VITALS: BP 126/59
== END 2023-11-17 14:30 | DRG 558 ==
LOC: ED 20:31
PROVIDERS: ADMITTING PHYSICIAN Hospitalist; ATTENDING PHYSICIAN Hospitalist; EMERGENCY PHYSICIAN Emergency Medicine; FAMILY PHYSICIAN Family Medicine
DX: M62.82 Rhabdomyolysis (principal); G30.9 Alzheimer's disease, unspecified; E03.9 Hypothyroidism, unspecified; F02.A0 Dementia in other diseases classified elsewhere, mild, without behavioral disturbance, psychotic disturbance, mood disturbance, and anxiety; I10 Essential (primary) hypertension; I34.0 Nonrheumatic mitral (valve) insufficiency; J44.9 Chronic obstructive pulmonary disease, unspecified; Z66 Do not resuscitate; S00.83XA Contusion of other part of head, initial encounter; S50.312A Abrasion of left elbow, initial encounter; S20.211A Contusion of right front wall of thorax, initial encounter; W19.XXXA Unspecified fall, initial encounter; Y92.003 Bedroom of unspecified non-institutional (private) residence as the place of occurrence of the external cause; E80.4 Gilbert syndrome; E78.00 Pure hypercholesterolemia, unspecified; I25.10 Atherosclerotic heart disease of native coronary artery without angina pectoris; I25.2 Old myocardial infarction; K57.90 Diverticulosis of intestine, part unspecified, without perforation or abscess without bleeding; M81.0 Age-related osteoporosis without current pathological fracture; M50.30 Other cervical disc degeneration, unspecified cervical region; Z59.89 Other problems related to housing and economic circumstances; Z79.82 Long term (current) use of aspirin; Z79.890 Hormone replacement therapy; Z79.899 Other long term (current) drug therapy; Z87.891 Personal history of nicotine dependence; Z86.79 Personal history of other diseases of the circulatory system; Z88.5 Allergy status to narcotic agent
CPT/HCPCS: 70450; 71046; 72125; 80048; 81003; 81015; 82550; 83735; 84484; 85025; 85027; 87086; 93005; 96374; 96376; 97167; 97535; 99285

== ENCOUNTER → 2024-01-26 12:01 | Outpatient (REF) | payer MEDICARE, OTHER, SELFPAY ==
[2024-01-26 13:12] LABS: % Basophils 0.8 % (0-2); % Eosinophils 2.9 % (0-6); % Immature Granulocytes 0.3 % (0-0.5); % Monocytes 7.3 % (1.7-9.3); % Neutrophils 65.7 % (42.2-75.2); Absolute Basophils 0.1 10^3/uL (0-0.2); Absolute Eosinophils 0.2 10^3/uL (0-0.7); Absolute Lymphocytes 1.4 10^3/uL (1.2-3.4); Absolute Monocytes 0.5 10^3/uL (0.1-0.6); Absolute Neutrophils 4.1 10^3/uL (1.4-6.5); Hematocrit 41.4 % (37.0-47.0); Hemoglobin 14.1 g/dL (12.0-16.0); Mean Corp Hgb Conc. 34.1 g/dL (33.0-37.0); Mean Corpuscular Hgb 34.1 pg (27.0-31.0); Mean Platelet Volume 10.3 fL (7.4-10.4); Nucleated Red Blood Cells % 0 %; Platelet Count 236 10^3/uL (130-400); Red Blood Cell Count 4.14 10^6/uL (4.20-5.40); Red Cell Dist. Width 12.5 % (11.5-14.5); White Blood Cell Count 6.2 10^3/uL (4.8-10.8)
[2024-01-26 14:10] LABS: ALT (SGPT) 19 U/L (0-35); AST (SGOT) 29 U/L (14-36); Albumin 4.5 g/dl (3.5-5.0); Alkaline Phosphatase 87 U/L (38-126); Blood Urea Nitrogen 26 mg/dl (7-17); Calcium 10.2 mg/dl (8.4-10.2); Carbon Dioxide 30 mmol/L (22-30); Chloride 102 mmol/L (98-107); Glucose 88 mg/dl (70-99); Potassium 4.8 mmol/L (3.5-5.1); Sodium 139 mmol/L (135-145); Total Bilirubin 1.1 mg/dl (0.2-1.3); Total Protein 7.1 g/dl (6.3-8.2); eGFR 43.54
[2024-01-26 14:14] LABS: Microalbumin, Random Urine 3.4 mg/dl (0.6-1.7)
[2024-01-26 14:20] LABS: Free T4 0.88 ng/dl (0.78-2.19)
[2024-01-26 14:33] LABS: TSH 6.32 uIU/ml (0.47-4.68)
[2024-01-29 04:32] LABS: Total T3 (Sendout) 158 ng/dL (80-200)
== END ==
LOC: REG 12:01
PROVIDERS: ATTENDING PHYSICIAN Family Medicine
DX: F03.90 Unspecified dementia, unspecified severity, without behavioral disturbance, psychotic disturbance, mood disturbance, and anxiety (principal); I10 Essential (primary) hypertension; C83.03 Small cell B-cell lymphoma, intra-abdominal lymph nodes; D47.2 Monoclonal gammopathy; N18.31 Chronic kidney disease, stage 3a; E03.9 Hypothyroidism, unspecified
CPT/HCPCS: 36415; 80053; 82043; 84439; 84443; 84480; 85025

== ENCOUNTER → 2024-05-24 11:42 | Outpatient (REF) | payer MEDICARE, OTHER, SELFPAY ==
[2024-05-24 14:12] LABS: ALT (SGPT) 15 U/L (0-35); AST (SGOT) 26 U/L (14-36); Albumin 4.4 g/dl (3.5-5.0); Alkaline Phosphatase 74 U/L (38-126); Blood Urea Nitrogen 19 mg/dl (7-17); Calcium 9.6 mg/dl (8.4-10.2); Carbon Dioxide 30 mmol/L (22-30); Chloride 104 mmol/L (98-107); Glucose 84 mg/dl (70-99); Potassium 4.5 mmol/L (3.5-5.1); Sodium 142 mmol/L (135-145); Total Bilirubin 1.2 mg/dl (0.2-1.3); Total Protein 7.2 g/dl (6.3-8.2); eGFR 54.19
[2024-05-24 15:13] LABS: Free T4 0.86 ng/dl (0.78-2.19)
== END ==
LOC: REG 11:42
PROVIDERS: ATTENDING PHYSICIAN Family Medicine
DX: N18.31 Chronic kidney disease, stage 3a (principal); E03.9 Hypothyroidism, unspecified
CPT/HCPCS: 36415; 80053; 84439; 84443

== ENCOUNTER → 2024-06-15 11:30 | Outpatient (REF) | payer MEDICARE, OTHER, SELFPAY ==
[2024-06-15 13:56] LABS: ALT (SGPT) 14 U/L (0-35); AST (SGOT) 27 U/L (14-36); Albumin 4.5 g/dl (3.5-5.0); Alkaline Phosphatase 82 U/L (38-126); Calcium 9.7 mg/dl (8.4-10.2); Carbon Dioxide 31 mmol/L (22-30); Chloride 99 mmol/L (98-107); Glucose 80 mg/dl (70-99); Potassium 4.9 mmol/L (3.5-5.1); Sodium 138 mmol/L (135-145); Total Bilirubin 1.3 mg/dl (0.2-1.3); Total Protein 7.2 g/dl (6.3-8.2); eGFR 54.19
[2024-06-15 14:09] LABS: Vitamin D, 25-OH*** 44.5 ng/mL (30-80)
[2024-06-15 14:35] LABS: Blood Urea Nitrogen 16 mg/dl (7-17)
== END ==
LOC: REG 11:30
PROVIDERS: ATTENDING PHYSICIAN Internal Medicine Endocrinology, Diabetes & Metabolism; FAMILY PHYSICIAN Family Medicine
DX: E55.9 Vitamin D deficiency, unspecified (principal); G30.9 Alzheimer's disease, unspecified
CPT/HCPCS: 36415; 80053; 82306; 84443

== ENCOUNTER 2024-08-28 11:27 | Emergency (ER) | payer MEDICARE, OTHER, SELFPAY ==
[2024-08-28 11:29] VITALS: BP 156/83
[2024-08-28 13:01] VITALS: BP 167/75; BMI 26.7
--- NOTE | 2024-08-28 13:38 | ED.GENMED ---
History of Present Illness
General
Chief Complaint: Fall
Source: patient
Exam Limitations: none
Time Seen by Provider: 08/28/24 13:22
Nursing documentation reviewed up to this point in time: agreed with
History of Present Illness
History of Present Illness:
Patient is a 88-year-old female who lives [place] and has an aide presents to the ER for evaluation of fall. Patient was standing while trying to get her shoes on and slid down to the floor hitting her low back against the wood frame of her bed. She
denies hitting her head her only complaint is low back pain. She has not take anything for pain. She denies any headache or neck pain. She denies extremity pain. She is on blood thinners.
Past History
Past History
ED Past Medical History: CAD (nstemi), COPD, Hypercholesterolemia and Other (Dementia)
ED Past Surgical History: Other (Tonsil/cataracts)
Social History
Tobacco: Former smoker
Alcohol: None
Drug: None
Living: with family
Review of Systems
Review of Systems
Allergies reviewed?: Yes
Other source history: family
All Other Systems: ROS reviewed and negative except as documented in HPI and ROS
Constitutional: Reports no symptoms; Denies fever, fatigue or chills
Respiratory: Reports no symptoms
Cardiac: Reports no symptoms
ABD/GI: Reports no symptoms
Musculoskeletal: Reports back pain
Skin: Reports no symptoms
Neurological: Reports no symptoms
Psychiatric: Reports no symptoms
Phy Exam
General Physical Exam
General Presentation: no apparent distress
General age: appears stated age
General Skin: warm and dry
General Habitus: normal
General Mental: alert
General Hydration: appears well hydrated
Cardiovascular Exam
Cardiovascular Exam: regular rate/rhythm, no murmur and normal peripheral pulses
Pulmonary Exam
Pulmonary Exam: lungs clear and no respiratory distress
Neurological Exam
Neurological Exam: alert and oriented x3
Musculoskeletal Exam
Musculoskeletal Exam: other (Normal inspection to back with no abrasions or lacerations no ecchymosis mildly tender to lumbar region full rom to all extremities ; no head injury on exam no bony c spine tenderness , full ROM to all extremities )
Skin Exam
Skin Exam: normal color and warm/dry
Psychiatric Exam
Psychiatric Exam: normal mood/affect
Course
Orders/Labs/Results
Orders:
Orders
08/28/24 13:34
Acetaminophen [Tylenol] 650 mg PO NOW STA
Lumbar Spine Complete, 4 View [CR Lumbar Spine Comp Min 4 Vw*] Urgent
Comment:
Reason For Exam: trauma
08/28/24 13:35
Lidocaine [Lidocaine 4% Patch] 1 patch TOPICAL NOW STA
Apply Lidocaine patch(s) to:: lumbar back
Vital Signs
Initial and Last Documented VS:
Initial Vital Signs
Temp Pulse Resp BP Pulse Ox
97.8 F 66 16 156/83 95
08/28/24 11:29 08/28/24 11:29 08/28/24 11:29 08/28/24 11:29 08/28/24 11:29
Last Documented Vital Signs
Temp Pulse Resp BP Pulse Ox
98.9 F 69 20 167/75 95
08/28/24 13:01 08/28/24 13:01 08/28/24 13:01 08/28/24 13:01 08/28/24 13:01
MDM/Problems Addressed
Differential Diagnosis Includes:
Not limited to lateral contusion versus fracture
MDM/Problems Addressed:
symptoms are consistent with lumbar contusion; patient with no other injuries on exam and well appearing. no head injury no thinners.
Patient has no other complaints or extremity complaints. Stable for discharge home. Daughter at bedside.
*Critical Care Note
Total Time (30-74mins, 75-104mins- exclusive of procedures): Not Applicable
ED Attending Note
-
Portions of this chart may have been created with voice recognition software.� Occasional wrong word or��sound alike� substitutions may have occurred due to the inherent limitations of voice recognition software.
Discharge Plan
Departure
Patient Disposition: Home (Routine Discharge)
Date of Disposition: 08/28/24
Time of Disposition: 16:16
Patient with high blood pressure during this ER visit?: Yes
Condition: Fair
Covid-19: Not Applicable
Discharge Problem:
Lumbar contusion
Instructions: Contusion (DC), Preventing falls in adults, BLOOD PRESSURE
Prescriptions:
New
lidocaine 5 % adhesive patch,medicated
1 patch topical DAILY Qty: 15 0RF
No Action
nitroglycerin 0.4 MG tablet, sublingual
0.4 mg sublingual [id number] PRN (Reason: chest pain) Qty: 25 3RF
lisinopril 20 mg tablet
20 mg PO DAILY
verapamil 120 mg tablet extended release
120 mg PO BID Qty: 0 0RF
vitamin B complex Tablet Extended Release
1 tab PO DAILY Qty: 0 0RF
donepezil 10 mg tablet
10 mg PO DAILY@1600 Qty: 0 0RF
alendronate 70 mg tablet
70 mg PO MO Qty: 0 0RF
aspirin 81 MG tablet,delayed release (DR/EC)
81 mg PO HS Qty: 0 0RF
folic acid 800 mcg Tablet
0.8 mg PO DAILY Qty: 0 0RF
memantine 10 mg tablet
10 mg PO BID Qty: 0 0RF
coenzyme Q10 [Co Q-10] 200 mg Capsule
200 mg PO DAILY Qty: 0 0RF
thyroid (pork) [[place] Thyroid] 60 MG tablet
60 mg PO DAILY Qty: 0 0RF
cholecalciferol (vitamin D3) 250 mcg (10,000 unit) Tablet
250 mcg PO DAILY Qty: 0 0RF
cyanocobalamin (vitamin B-12) 2,500 mcg Tablet
2,500 mcg PO DAILY Qty: 0 0RF
biotin 1,000 mcg Tablet,Chewable
1,000 mcg PO DAILY Qty: 0 0RF
isosorbide mononitrate 60 mg tablet extended release 24 hr
60 mg PO DAILY Qty: 30 0RF
Referrals:
UNKNOWN - PT DOES,NOT KNOW [Family Provider] -
Activity Restrictions/Additional Instructions:
As discussed x-rays are negative. symptoms are consistent with lumbar contusion. Ice the affected area for the next 24 hours 20 minutes at a time several times a day followed by warm moist heat. You may take Tylenol for pain. Also you are given
a prescription for lidocaine patches : Use as needed.
Return to the ER if any worsening of symptoms.
follow-up family doctor the next several days.
Interventions
Interventions:
*Risk Screen - Suicide Last Done: 08/28/24 11:30
*General Assessment Last Done: 08/28/24 13:01
*Neglect/Abuse Screening Last Done: 08/28/24 11:30
*ED- Fall Risk Assessment Last Done: 08/28/24 13:01
*ED COVID-19 Vaccine History Last Done: 08/28/24 13:01
ED-Musculoskeletal Assessment Last Done: 08/28/24 13:01
ED- Neurological Assessment Last Done: 08/28/24 13:01
ED-Skin Assessment Last Done: 08/28/24 13:01
Discharge Date and Time
Print Language: MONGOLIAN
[2024-08-28] MEDS: TYLENOL 650 MG PO (15:00)
[2024-08-28] MEDS: LIDOCAINE 4% PATCH 1 PATCH TOPICAL (15:01)
--- NOTE | 2024-08-28 15:07 | EDRN ---
the pt pressed the call infante and this RN entered the pts room, the pt stated that she wanted to go to the bathroom, this RN and Chuck PCT assisted the pt out of the bed and the pt was able to ambulate to the bathroom with no issues, the pt ambulated
back to the stretcher and this RN and Chuck PCT assisted the pt back into the stretcher, awaiting for Mckayla Lafleur NP to come to the pts bedside to update the pt and the pts daughter on the plan of care
[2024-08-28 16:50] VITALS: BP 126/87
== END 2024-08-28 17:06 | disposition home or self-care (01) ==
LOC: EMR 11:27
PROVIDERS: EMERGENCY PHYSICIAN Emergency Medicine
DX: S30.0XXA Contusion of lower back and pelvis, initial encounter (principal); W22.03XA Walked into furniture, initial encounter; Z87.891 Personal history of nicotine dependence; Z79.01 Long term (current) use of anticoagulants
CPT/HCPCS: 99283; 72110

== ENCOUNTER → 2024-09-04 11:23 | Outpatient (REF) | payer MEDICARE, OTHER, SELFPAY ==
[2024-09-04 12:19] LABS: % Basophils 0.7 % (0-2); % Eosinophils 1.3 % (0-6); % Lymphocytes 16.4 % (20.5-51.1); % Neutrophils 71.6 % (42.2-75.2); Absolute Basophils 0.1 10^3/uL (0-0.2); Absolute Eosinophils 0.1 10^3/uL (0-0.7); Absolute Immature Granulocytes 0.1 10^3/uL (0-0.05); Absolute Lymphocytes 1.4 10^3/uL (1.2-3.4); Absolute Monocytes 0.7 10^3/uL (0.1-0.6); Absolute Neutrophils 5.9 10^3/uL (1.4-6.5); Hematocrit 43.3 % (37.0-47.0); Hemoglobin 14.8 g/dL (12.0-16.0); Mean Corp Hgb Conc. 34.2 g/dL (33.0-37.0); Mean Corpuscular Hgb 33.7 pg (27.0-31.0); Mean Corpuscular Volume 98.6 fL (81.0-99.0); Mean Platelet Volume 11.1 fL (7.4-10.4); Nucleated Red Blood Cells % 0 %; Platelet Count 228 10^3/uL (130-400); Red Blood Cell Count 4.39 10^6/uL (4.20-5.40); Red Cell Dist. Width 12.5 % (11.5-14.5); White Blood Cell Count 8.2 10^3/uL (4.8-10.8)
[2024-09-04 13:48] LABS: ALT (SGPT) 15 U/L (0-35); AST (SGOT) 23 U/L (14-36); Albumin 4.2 g/dl (3.5-5.0); Alkaline Phosphatase 79 U/L (38-126); Blood Urea Nitrogen 28 mg/dl (7-17); Calcium 9.9 mg/dl (8.4-10.2); Carbon Dioxide 27 mmol/L (22-30); Chloride 103 mmol/L (98-107); Glucose 95 mg/dl (70-99); HDL Cholesterol 50 mg/dl; LDL Cholesterol, Calculated 147 mg/dl; Potassium 4.5 mmol/L (3.5-5.1); Sodium 145 mmol/L (135-145); Total Bilirubin 1.7 mg/dl (0.2-1.3); Total Cholesterol 224 mg/dl (50-199); Total Protein 7.2 g/dl (6.3-8.2); Triglyceride 138 mg/dl (10-149); Very Low Density Lipoprotein 27 mg/dl (0-30); eGFR 54.19
[2024-09-04 14:34] LABS: Free T4 2.16 ng/dl (0.78-2.19)
[2024-09-04 14:56] LABS: Folate 15.6 ng/ml (2.76-20); Vitamin B12 > 1000 pg/ml (239-931)
== END ==
LOC: REG 11:23
PROVIDERS: ATTENDING PHYSICIAN Family Medicine
DX: F32.0 Major depressive disorder, single episode, mild (principal); F41.1 Generalized anxiety disorder; E78.00 Pure hypercholesterolemia, unspecified; I10 Essential (primary) hypertension; N18.31 Chronic kidney disease, stage 3a; Z79.899 Other long term (current) drug therapy
CPT/HCPCS: 36415; 80053; 80061; 82607; 82746; 84439; 84443; 85025

== ENCOUNTER → 2024-10-11 11:55 | Outpatient (REF) | payer MEDICARE, OTHER, SELFPAY ==
[2024-10-11 13:58] LABS: TSH 1.78 uIU/ml (0.47-4.68)
== END ==
LOC: REG 11:55
PROVIDERS: ATTENDING PHYSICIAN Internal Medicine Endocrinology, Diabetes & Metabolism; FAMILY PHYSICIAN Family Medicine
DX: E03.9 Hypothyroidism, unspecified (principal)
CPT/HCPCS: 36415; 84443

== ENCOUNTER → 2024-12-13 12:20 | Outpatient (REF) | payer MEDICARE, OTHER, SELFPAY ==
[2024-12-13 12:57] LABS: Hematocrit 40.0 % (37.0-47.0); Hemoglobin 13.6 g/dL (12.0-16.0); Mean Corp Hgb Conc. 34.0 g/dL (33.0-37.0); Mean Corpuscular Volume 101.0 fL (81.0-99.0); Nucleated Red Blood Cells % 0 %; Platelet Count 205 10^3/uL (130-400); Red Cell Dist. Width 12.2 % (11.5-14.5)
[2024-12-13 13:22] LABS: ALT (SGPT) 11 U/L (0-35); AST (SGOT) 18 U/L (14-36); Albumin 4.4 g/dl (3.5-5.0); Blood Urea Nitrogen 16 mg/dl (7-17); Calcium 10.4 mg/dl (8.4-10.2); Carbon Dioxide 29 mmol/L (22-30); Chloride 106 mmol/L (98-107); Glucose 101 mg/dl (70-99); HDL Cholesterol 48 mg/dl; LDL Cholesterol, Calculated 121 mg/dl; Potassium 4.5 mmol/L (3.5-5.1); Sodium 141 mmol/L (135-145); Total Protein 7.1 g/dl (6.3-8.2); Very Low Density Lipoprotein 24 mg/dl (0-30); eGFR 53.85
[2024-12-13 13:33] LABS: Alkaline Phosphatase 64 U/L (38-126)
[2024-12-13 14:29] LABS: Folate 8.2 ng/ml (2.76-20); Vitamin B12 308 pg/ml (239-931)
== END ==
LOC: REG 12:20
PROVIDERS: ATTENDING PHYSICIAN Family Medicine
DX: Z11.1 Encounter for screening for respiratory tuberculosis (principal); F32.0 Major depressive disorder, single episode, mild; F41.1 Generalized anxiety disorder; F03.90 Unspecified dementia, unspecified severity, without behavioral disturbance, psychotic disturbance, mood disturbance, and anxiety; E78.00 Pure hypercholesterolemia, unspecified; I10 Essential (primary) hypertension; E03.9 Hypothyroidism, unspecified; N18.31 Chronic kidney disease, stage 3a; Z79.899 Other long term (current) drug therapy
CPT/HCPCS: 36415; 80053; 80061; 82607; 82746; 84443; 85025; 86480

== ENCOUNTER → 2025-03-29 11:07 | Outpatient (REF) | payer MEDICARE, OTHER, SELFPAY ==
[2025-03-29 11:57] LABS: Hematocrit 44.8 % (37.0-47.0); Hemoglobin 14.9 g/dL (12.0-16.0); Mean Corp Hgb Conc. 33.3 g/dL (33.0-37.0); Mean Corpuscular Volume 104.4 fL (81.0-99.0); Nucleated Red Blood Cells % 0 %; Platelet Count 228 10^3/uL (130-400); Red Cell Dist. Width 11.9 % (11.5-14.5)
[2025-03-29 12:28] LABS: ALT (SGPT) 11 U/L (0-35); AST (SGOT) 21 U/L (14-36); Albumin 4.5 g/dl (3.5-5.0); Alkaline Phosphatase 75 U/L (38-126); Blood Urea Nitrogen 12 mg/dl (7-17); Calcium 10.0 mg/dl (8.4-10.2); Carbon Dioxide 29 mmol/L (22-30); Chloride 105 mmol/L (98-107); Glucose 112 mg/dl (70-99); Potassium 3.9 mmol/L (3.5-5.1); Sodium 141 mmol/L (135-145); Total Protein 7.3 g/dl (6.3-8.2); eGFR > 60.00
== END ==
LOC: REG 11:07
PROVIDERS: ATTENDING PHYSICIAN Family Medicine
DX: I10 Essential (primary) hypertension (principal); D75.89 Other specified diseases of blood and blood-forming organs
CPT/HCPCS: 36415; 80053; 85025